=== PATIENT | female | born 1990 | race Caucasian/White ===

== ENCOUNTER → 2016-10-22 | Day surgery (SDC) | payer OTHER ==
[~2016-10-22] VITALS: Ht 172.7 cm; Wt 81.2 kg
[~2016-10-22] MED LIST: BUPIVACAINE HCL 0.25% 30 ML VIAL As Ordered ONE; BUPIVACAINE HCL 0.25% 30 ML VIAL XX ONE; GABA-279 PO; GLYCOPYRROLATE INJ 0.2 MG/ML 2 ML VIAL As Ordered ONE; LEUP375KIT IM; LIDOCAINE 2% INJ 100 MG/5 ML SDV (FOR ANES.) As Ordered ONE; LR 1,000 ML IV SCH; METOCLOPRAMIDE INJ 10MG/2ML VIAL (J2765) As Ordered ONE; MIDAZOLAM INJ 2 MG/2 ML VIAL (J2250) As Ordered ONE; MORPHINE 10 MG/ML 1ML VIAL As Ordered ONE; MULTCHW13 PO; NAPR500T2 PO; NEOSTIGMINE 1MG/ML 5 ML SYRINGE (J2710) As Ordered ONE; ONDANSETRON 4MG/2ML VIAL (J2405) As Ordered ONE; ONDANSETRON 4MG/2ML VIAL (J2405) IV PRN; PERCOCET 5MG/325MG TAB As Ordered ONE; PERCOCET 5MG/325MG TAB PO PRN; PROPOFOL 200 MG/20 ML VIAL As Ordered ONE; ROCURONIUM BROMIDE 50 MG/5 ML VIAL As Ordered ONE; dexameTHASONE 4 MG/ML 1ML VIAL (J1100) As Ordered ONE; fentaNYL 100 MCG/2 ML INJECTION (J3010) IV PRN; fentaNYL 250 MCG/5 ML INJECTION (J3010) As Ordered ONE
[2016-10-22 12:10] LABS: MEAN CORPUSCULAR HEMOGLOBIN 29.4 pg (27.0-33.0); MEAN CORPUSCULAR HGB CONC 32.9 g/dl (32.0-36.5); MEAN CORPUSCULAR VOLUME 89.4 fl (80.0-96.0); RED CELL DISTRIBUTION WIDTH 11.9 % (11.5-14.5); WHITE BLOOD COUNT 6.8 K/mm3 (4.0-10.0)
[2016-10-22 12:26] LABS: CONTROL LINE HCG INT CTR LINE PRESENT
[2016-10-22] MEDS: MORPHINE 2 MG/ML 1ML SYRINGE IV PRN ×5 (14:10→14:30)
[2016-10-22 15:20] VITALS: BP 111/62
--- NOTE | 2016-10-22 17:47 | RO ---
DATE OF PROCEDURE: 10/22/2016 PREPROCEDURE DIAGNOSES: 1. Stage II endometriosis. 2. Chronic pelvic pain. POSTPROCEDURE DIAGNOSES: 1. Stage II endometriosis. 2. Chronic pelvic pain. OPERATIVE PROCEDURE: 1. Operative laparoscopy. 2. Lysis of adhesions. SURGEON: Claire Church MD PRECISION LENS CENTERER AND EDGER: Vladislav Fay MD ANESTHESIA: General endotracheal. ESTIMATED BLOOD LOSS: 5 mL. FLUIDS: 900 ml lactated Ringer's. URINE OUTPUT: 25 mL CONDITION: Stable. COMPLICATIONS: None. SPECIMEN: None. ANTIBIOTICS: None. INDICATION: The patient is a 25-year-old G1, P1 with a history of stage II endometriosis. The patient has been on Lupron for approximately 1 year with acute exacerbation of her symptoms currently, desiring surgical management at this time. FINDINGS: Hypervascular areas throughout the pelvis in the anterior and posterior cul-de-sac in addition to uterus with dense adhesions of the right and left ovaries to their corresponding ovarian fossae. There was also omental and bowel adhesions of the right ascending colon and omentum to the right anterior abdominal wall. Normal appearing liver edge. DESCRIPTION OF PROCEDURE: The risks, benefits, indications, alternatives of procedure were reviewed with the patient. Informed consent was obtained. The patient was taken to the operating room where general anesthesia was obtained without difficulty. The patient was placed in low lithotomy position using Mookie stirrups and exam under anesthesia was then performed significant for the above findings. The patient was then prepped and draped in the normal sterile fashion. A Taylor catheter was placed without difficulty. A sterile speculum was placed in the patient's vagina and the cervix was visualized. Single-tooth tenaculum was then used to grasp the anterior lip of the cervix. A Hulka uterine manipulator was then placed inside the cervix. Attention was then turned to the patient's abdomen where a 5 mm skin incision was then made in the inferior aspect of the umbilicus. After injection of 2 mL of 0.25% Marcaine, a 5 mm trocar and sleeve was then carefully introduced into the peritoneal cavity under direct visualization at a 93 degrees angle while tenting up on the anterior abdominal wall. Intraperitoneal placement was confirmed under direct visualization with the laparoscope. The entry pressure was less than 5 mm. A pneumoperitoneum was obtained with several liters of CO2 gas, maximum pressure of 50 mmHg. Upon entry into the peritoneal cavity, structures immediately below the incision were inspected and found to be free of injury. Two other 5 mm trocars were inserted in the left and right lower quadrant under direct visualization. A survey of the patient's abdomen and pelvis was notable for the findings as mentioned above. Using a harmonic scalpel, the omental adhesions and the bowel adhesions were taken down in the right lower quadrant and all areas were noted to be hemostatic. The gas was turned off and the CO2 and all instruments were removed from the patient's abdomen. The trocars were then removed. Skin incision were then reapproximated using #4-0 Monocryl. Uterine manipulator was then removed with excellent hemostasis noted. All instruments were then removed from the patient's vagina. A vaginal sweep was performed and confirmed. No retained foreign objects remained in the vagina. At the completion of the case sponge and needle counts were correct times two. The patient tolerated the procedure well and was taken to the PACU in stable condition.
== END | disposition home or self-care (01) ==
LOC: M SDC 11:40
PROVIDERS: ATTEND Obstetrics & Gynecology
DX: N80.8 Other endometriosis (principal); R10.2 Pelvic and perineal pain; N73.6 Female pelvic peritoneal adhesions (postinfective); J45.909 Unspecified asthma, uncomplicated; F17.210 Nicotine dependence, cigarettes, uncomplicated; Z79.899 Other long term (current) drug therapy; Z88.8 Allergy status to other drugs, medicaments and biological substances
CPT/HCPCS: 36415; 58660; 84703; 85027; 86850; 86900; 86901; J1100; J2250; J2405; J2710; J2765; J3010